=== PATIENT | male | born 1975 | race African-American/Black ===

== ENCOUNTER 2024-11-11 10:05 | Emergency (ER) | payer OTHER ==
[~2024-11-11] VITALS: Ht 177.8 cm; Wt 112.9 kg
[~2024-11-11 10:05] MED LIST: BUPR-710 PO; ELVI1TAB3 PO; GABA-534 PO; MELA1TAB28 MT; QUET200T30 PO; TRAZ-251 PO
[2024-11-11 10:07] VITALS: O2SAT 98
[2024-11-11 11:03] LABS: CLARITY URINE CLEAR (CLEAR); COLOR URINE YELLOW (YELLOW); GLUCOSE URINE NEGATIVE (NEGATIVE); KETONES URINE NEGATIVE (NEGATIVE); LEUKOCYTE ESTERASE URINE NEGATIVE (NEGATIVE); NITRITE URINE NEGATIVE (NEGATIVE); OCCULT BLOOD URINE NEGATIVE (NEGATIVE); PH URINE 6.0 (4.5-8.0); PROTEIN URINE NEGATIVE (NEGATIVE); SPECIFIC GRAVITY URINE 1.004 (1.005-1.030); UROBILINOGEN URINE 0.2 E.U./dL (0.2-1.0)
[2024-11-11 11:23] LABS: *AMPHETAMINES SCREEN URINE NEGATIVE (NEGATIVE); *BARBITURATES SCREEN URINE NEGATIVE (NEGATIVE); *BENZODIAZEPINES SCREEN URINE NEGATIVE (NEGATIVE); *COCAINE SCREEN URINE NEGATIVE (NEGATIVE); CANNABINOID URINE SCREEN PRESUMPTIVE POSITIVE (NEGATIVE); ECSTASY MDMA SCREEN URINE NEGATIVE (NEGATIVE); METHADONE URINE SCREEN NEGATIVE (NEGATIVE); OPIATES URINE SCREEN NEGATIVE (NEGATIVE); PHENCYCLIDINE URINE SCREEN NEGATIVE (NEGATIVE)
[2024-11-11 12:14] LABS: BASOPHILS % 0.7 % (0.0-2.0); EOSINOPHILS % 0.1 % (0.0-5.0); HEMATOCRIT. 42.6 % (42.0-52.0); HEMOGLOBIN. 13.9 g/dL (14.0-18.0); LYMPHOCYTES % 27.4 % (20.0-50.0); MEAN PLATELET VOLUME 9.1 fl (7.4-10.4); MONOCYTES % 7.4 % (2.0-8.0); NEUTROPHILS % 64.4 % (40.0-76.0); PLATELET 212 x1000/uL (130-400); RED BLOOD CELL COUNT 4.89 mill/uL (4.7-6.1); RED CELL DISTRIBUTION WIDTH 15.2 % (11.6-14.6)
[2024-11-11 12:16] LABS: CREATININE 1.2 mg/dL (0.6-1.3); UREA NITROGEN BLOOD 9 mg/dL (9-23)
[2024-11-11 12:17] LABS: ETHANOL BLOOD < 10 mg/dL (<10); TROPONIN I HIGH SENSITIVITY < 4 ng/L (3.0-53)
[2024-11-11 12:18] LABS: ASPARTATE AMINOTRANSFERASE 14 IU/L (<34); BILIRUBIN DIRECT < 0.1 mg/dL (<=3.0); BILIRUBIN TOTAL 0.3 mg/dL (0.1-1.0)
[2024-11-11 12:19] LABS: PROTEIN TOTAL 6.4 g/dL (6.0-8.3)
[2024-11-11 12:30] LABS: INR 1.0
[2024-11-11 15:05] LABS: TROPONIN I HIGH SENSITIVITY < 4 ng/L (3.0-53)
[2024-11-11 15:31] VITALS: BP 144/90; PULSE 88; RESP 12; TEMP 36.9; O2SAT 92
[2024-11-11] MEDS ORDERED: IOHEXOL-350 100 ML BOTTLE ONE (23:46)
== END 2024-11-11 15:35 | disposition short-term general hospital (02) ==
LOC: ER 10:05 → EDBEDREQ 10:43 → ER 15:35
DX: R07.89 Other chest pain (principal); R47.1 Dysarthria and anarthria; R06.02 Shortness of breath; F31.9 Bipolar disorder, unspecified; F41.9 Anxiety disorder, unspecified; I10 Essential (primary) hypertension; F12.90 Cannabis use, unspecified, uncomplicated; Z79.899 Other long term (current) drug therapy
CPT/HCPCS: 80076; 80305; 80048; 81003; 80320; 83880; 85025; 85610; 85730; 84484; 36415; 71045; 70496; 70498; 70450; 93005; 99285; Q9967; G0480

== ENCOUNTER 2024-12-24 09:01 | Emergency (ER) | payer OTHER ==
[~2024-12-24] VITALS: Ht 175.3 cm; Wt 79.0 kg
[2024-12-24 09:08] VITALS: O2SAT 99
[2024-12-24] MEDS: VANCOMYCIN 1G PREMIX 200 ML IV ONE (09:45)
[2024-12-24] MEDS: PIPERACILLIN/TAZO 3.375G/50ML 50 ML IV ONE (10:05)
[2024-12-24] MEDS: SODIUM CHLORIDE 0.9% (SEPSIS BOLUS) IV ONE (10:05)
[2024-12-24 10:29] LABS: HEMATOCRIT. 40.6 % (42.0-52.0); HEMOGLOBIN. 13.3 g/dL (14.0-18.0); MEAN PLATELET VOLUME 9.1 fl (7.4-10.4); PLATELET 281 x1000/uL (130-400); RED BLOOD CELL COUNT 4.82 mill/uL (4.7-6.1); RED CELL DISTRIBUTION WIDTH 13.7 % (11.6-14.6)
[2024-12-24 10:39] LABS: CREATININE 1.5 mg/dL (0.6-1.3); UREA NITROGEN BLOOD 8 mg/dL (9-23)
[2024-12-24 10:41] LABS: ASPARTATE AMINOTRANSFERASE 24 IU/L (<34); BILIRUBIN DIRECT 0.3 mg/dL (<=3.0); BILIRUBIN TOTAL 0.8 mg/dL (0.1-1.0)
[2024-12-24 10:51] LABS: INR 1.1
[2024-12-24 11:05] LABS: PROTEIN TOTAL 8.5 g/dL (6.0-8.3)
[2024-12-24 11:09] LABS: LYMPHOCYTES % MANUAL 7.0 % (20.0-50.0); MONOCYTES % MANUAL 7.0 % (2.0-8.0); NEUTROPHILS % MANUAL 86.0 % (45.0-75.0); PLATELET ESTIMATE NORMAL
[2024-12-24 12:47] VITALS: TEMP 36.9
[2024-12-24] MEDS: MORPHINE SULFATE 4 MG/ML INJ (FOR IV/IM USE) IV ONE (12:59)
[2024-12-24 13:05] LABS: CLARITY URINE CLEAR (CLEAR); COLOR URINE YELLOW (YELLOW); GLUCOSE URINE NEGATIVE (NEGATIVE); KETONES URINE TRACE (NEGATIVE); LEUKOCYTE ESTERASE URINE NEGATIVE (NEGATIVE); NITRITE URINE NEGATIVE (NEGATIVE); OCCULT BLOOD URINE NEGATIVE (NEGATIVE); PH URINE >=9.0 (4.5-8.0); PROTEIN URINE 2+ (NEGATIVE); SPECIFIC GRAVITY URINE 1.022 (1.005-1.030); UROBILINOGEN URINE 2.0 E.U./dL (0.2-1.0)
[2024-12-24 13:33] LABS: BACTERIA URINE NONE SEEN; SQUAMOUS EPITHELIAL CELL URINE RARE /lpf (RARE/1+); WBC URINE 0-2 /hpf (0-2); YEAST URINE NONE SEEN
[2024-12-24 13:34] LABS: WHITE BLOOD CELL CASTS URINE 0-5 /lpf
[2024-12-24 14:01] VITALS: BP 116/56; PULSE 112; RESP 20; O2SAT 97
== END 2024-12-24 14:33 | disposition short-term general hospital (02) ==
LOC: ER 09:01 → CMPBEDREQ 12-25 13:41
DX: T81.41XA Infection following a procedure, superficial incisional surgical site, initial encounter (principal); F17.200 Nicotine dependence, unspecified, uncomplicated; F31.9 Bipolar disorder, unspecified; F12.90 Cannabis use, unspecified, uncomplicated; Z79.899 Other long term (current) drug therapy; X58.XXXA Exposure to other specified factors, initial encounter
CPT/HCPCS: 80076; 80048; 81003; 83605; 85025; 85610; 87040; 87086; 36415; 84145; 71045; 93005; 96368; 96365; 96366; 96375; 99291; J2543; J3373; J2270; J7030; Z7610